=== PATIENT | female | born 1965 | race Caucasian/White ===

== ENCOUNTER 2016-02-27 20:41 | Emergency (ER) | payer OTHER ==
--- NOTE | 2016-02-27 21:02 | EDPRACDOC ---
- General Information Chief Complaint: Altered Mental Status Stated Complaint: DIABETIC Time Seen by Provider: 02/27/16 20:43 Home Medications: Home Medications Alprazolam [Xanax] 1 mg PO HS 05/22/12 Metformin HCl [Glucophage] 1,000 mg PO BID 05/22/12 Zolpidem Tartrate [Ambien] 10 mg PO HS 05/22/12 Cyclobenzaprine HCl [Flexeril] 10 mg PO TID PRN #15 tablet 04/07/15 Dapagliflozin Propanediol [Farxiga] 10 mg PO DAILY 04/07/15 Insulin Glargine,Hum.rec.anlog [Lantus] 16 unit SQ TID 06/20/15 Meloxicam 15 mg PO DAILY #15 tab 06/20/15 Oxycodone HCl [Oxycodone Immediate Release] 15 mg PO Q8H PRN 06/20/15 Unobtainable 0 mg PO .SEE COMMENTS 02/27/16 Allergies/Adverse Reactions: Allergies Allergy/AdvReac Type Severity Reaction Status Date / Time Sulfa (Sulfonamide Allergy Rash-Genera Verified 02/27/16 21:19 Antibiotics) lized - History of Present Illness Onset: UNKNOWN Exact Onset of Symptoms: Unknown HPI: EMS STATES SON CALLED 911 BECAUSE PT WAS LETHARGIC AND HAVING SLURRED SPEECH, PT STATES THAT HER BLOOD SUGAR HAS BEEN HIGH BECAUSE SHE CAN NOT AFFORD HER MEDS. NO N/V/D, PT STATES SHE HAS HAD "CHILLS". NO CP OR SOBR. Symptoms began: Suddenly Duration: Since Onset Symptoms Currently: Reports: Still Present, Unchanged Altered Quality: Reports: Decreased Alertness Altered Severity: Reports: Moderate Recent Symptoms of: Reports: Medications/drug use Relevant History: Reports: Diabetes Prehospital: Reports: Tours Hostess, IV Associated signs and symptoms: Reports: Slurred speech, Weakness. Denies: Chest pain, Headache, Seizure ED Past Medical History - History Reviewed Yes Nurses notes reviewed and agree except as marked - Patient Medical History Cardiac History: Reports: Hypertension, Hypercholesterolemia Psychological History: Denies: Depression Systemic History: Reports: Diabetes Surgical History: Reports: Hysterectomy, Hernia Surgery, Other (ORTHO) - Social Medical History Smoking Status: Heavy tobacco smoker (5 or more cigarettes/day or daily pipe/ cigar) ETOH: None Substance Abuse: None EDM Review of Systems - Review of Systems Constitutional: Chills, Weakness Eyes: negative: Blurred Vision, Double Vision Ears: negative: Drainage Throat: negative: Pain Nose: negative: Congestion, Discharge Respiratory: negative: Cough, Shortness of Breath, Wheezing Cardiovascular: negative: Chest Pain, Palpitations Gastrointestinal: negative: Diarrhea, Nausea, Pain, Vomiting Genitourinary: negative: Dysuria, Frequency Neurological: Speech Difficulty, Weakness. negative: Dizziness, Headache, Numbness Musculoskeletal: No Symptoms Reported Integumentary: No Symptoms Reported - Physical Exam Constitutional: Alert (Awake), No apparent distress (SPEECH SLURRED) Oriented to: Time, Person, Place Last recorded Vital Signs: Oxygen Pulse Oxygen Saturation O2 Device Oxygen Flow Rate Fraction of Inspired Oxygen ( FIO2) - HEENT Head: Normal ( normocephalic) Eye Exam: Normal (PERRL, EOMI, Sclera white) Oropharynx: Normal (Pharynx:Moist without exudate,Gums-no swelling) Tympanic Membrane: Normal ENT EAC: Normal TMJ: Normal Nose: No Symptoms Reported (septum midline) Neck: Normal (FROM, trachea at midline) - Respiratory/Cardiovascular Respiratory: Normal - CTA (BBS clear to auscultation without adventitious sounds ) Cardiovascular: Normal (RRR without murmur, gallop or rub) - GI Auscultation: Normal (NABS) Palpation: Fluid Wave Tenderness: Non tender Kwon's Sign: Negative - Musculoskeletal Back: Normal (Non-Tender) Extremities: Normal (Normal tone, Pulses 2+ No cyanosis or edema, FROM) - Integumentary Skin: Warm, Dry, Other (MULTIPLE ROUND SCABBED/EXCORIATED LESTIONS TO FACE AND NECK AND ARMS. SMALL ROUND EXCORIATED LESION MID BACK, PT COMPLAINS OF ITCHING HERE. NO ERYTHEMA, INDURATION OR FLUCTUANCE) Lymphatics: Normal (no adenopathy) - Neurologic Memory Impaired: Normal Motor Function: Normal (Normal tone, Pulses 2+ No cyanosis or edema, FROM) Cranial Nerve: Normal (CN II-X11 intact sensation, strength 5/5) Cerebellar: Normal Mood Description: Normal Perception: Normal - Differential Diagnosis Dehydration, DKA, Hypercalcemia, Hypernatremia, Hypoglycemia, Hyponatremia, CVA , Mass Lesion, ETOH intoxication, Medication toxicity, UTI - Re-evaluation Re-evaluation 1 Re-evaluation Time: 22:20 (MORE ALERT, STATES SHE TOOK XANAX 1 MG AND AN AMBIEN TONIGHT.) - Results 02/27/16 21:04 02/27/16 21:04 - EKG EKG #1 EKG Time: 21:15 -: Yes EKG interpreted by me Rate: bpm: 70 [place]: Normal Rhythm: NSR Block: None Hypertrophy: None ST: Normal Comparison: 01/02/16 (NO ACUTE PROCESS) - Diagnostic Imaging CXR Image interpreted by: Radiologist PORTABLE CHEST 1 VIEW COMPARISON: Chest radiograph performed 01/02/2016 FINDINGS: The lungs are well-aerated and clear. There is no evidence of focal opacification, pleural effusion or pneumothorax. The cardiomediastinal silhouette is within normal limits. No acute osseous abnormalities are seen. IMPRESSION: No acute cardiopulmonary process seen. CT HEAD Image interpreted by: Radiologist CT HEAD WITHOUT CONTRAST TECHNIQUE: Contiguous axial images were obtained from the base of the skull through the vertex without intravenous contrast. COMPARISON: 01/02/2016 and prior exams. FINDINGS: Minimal chronic small-vessel white matter ischemic changes again noted. No acute intracranial abnormalities are identified, including mass lesion or mass effect, hydrocephalus, extra-axial fluid collection, midline shift, hemorrhage, or acute infarction. The visualized bony calvarium is unremarkable. IMPRESSION: No evidence acute intracranial abnormality. - Additional Information Additional Information: OLD CHART REVIEWED, PT HAD SIMILAR EPISODE A FEW MONTHS AGO AFTER TAKING XANAX AND AMBIEN TOGETHER Decision Time to Discharge: 23:00 - Departure Disposition: Home Condition: Stable Final Diagnosis: IDDM, POOR CONTROL, Non compliance w medication regimen, Adverse drug reaction Instructions: Diabetes Mellitus Type 2 in Adults (ED) Education/Counseling Given To: Patient Education/Counseling Given Regarding: Diagnosis, Treatment, Prognosis, Follow Up Referrals: Michelle Hernandez MD [NonStaff] - One Week Additional Instructions: PLEASE TAKE ALL OF YOUR MEDICATIONS PRESCRIBED. YOU MAY PURCHASE METFORMIN AT [employer] FOR $4, RETURN TO THE ED FOR ANY WORSENING SYMPTOMS OR CONCERNS. PLEASE DO NOT TAKE XANAX AND AMBIEN AT THE SAME TIME.
[2016-02-27] MEDS ORDERED: NS 1,000 ML IV ONE (21:04)
[2016-02-27 21:12] VITALS: BP 103/57; BMI 32.9
[2016-02-27 21:13] LABS: AUTOMATED BASOPHIL 0.6 % (0-2); AUTOMATED EOSINOPHIL 1.5 % (0-5); AUTOMATED LYMPH 36.8 % (17-44); AUTOMATED MONOCYTE 5.7 % (3-10); AUTOMATED NEUTROPHIL 55.4 % (45-76)
[2016-02-27 21:23] LABS: BLOOD UREA NITROGEN 25 MG/DL (7-17); CALC CORRECTED 9.7 MG/DL (8.4-10.2); CALCIUM 9.3 MG/DL (8.4-10.2); CALCULATED OSMOLALITY 275 MOs/Kg (270-290); CHLORIDE 95 mEq/L (98-107); SODIUM LEVEL 130 mEq/L (137-146); TOTAL PROTEIN 6.4 G/DL (6.3-8.2)
[2016-02-27 21:24] LABS: ETOH-MGDL < 10 mg/dL
[2016-02-27 21:26] LABS: GLUCOSE 464 MG/DL (70-99); PARTIAL THROMB. TIME 21.6 SEC (22-35); PT-INR 1.1
[2016-02-27] MEDS ORDERED: REGULAR INSULIN 100 UNITS/ML - 3 ML VIAL IV ONE (21:30)
--- NOTE | 2016-02-27 21:36 | DIRPT ---
CLINICAL DATA: Acute onset of lethargy and slurred speech. Hyperglycemia and chills. Initial encounter. EXAM: PORTABLE CHEST 1 VIEW COMPARISON: Chest radiograph performed 01/02/2016 FINDINGS: The lungs are well-aerated and clear. There is no evidence of focal opacification, pleural effusion or pneumothorax. The cardiomediastinal silhouette is within normal limits. No acute osseous abnormalities are seen. IMPRESSION: No acute cardiopulmonary process seen. Electronically Signed By: Prabhu Gandara M.D. On: 02/27/2016 21:33
--- NOTE | 2016-02-27 21:49 | DIRPT ---
CLINICAL DATA: 50-year-old female with acute altered mental status and slurred speech. EXAM: CT HEAD WITHOUT CONTRAST TECHNIQUE: Contiguous axial images were obtained from the base of the skull through the vertex without intravenous contrast. COMPARISON: 01/02/2016 and prior exams. FINDINGS: Minimal chronic small-vessel white matter ischemic changes again noted. No acute intracranial abnormalities are identified, including mass lesion or mass effect, hydrocephalus, extra-axial fluid collection, midline shift, hemorrhage, or acute infarction. The visualized bony calvarium is unremarkable. IMPRESSION: No evidence acute intracranial abnormality. Electronically Signed By: Anthony Pan M.D. On: 02/27/2016 21:46
[2016-02-27 21:56] LABS: LEUKOCYTES/URINE NEG (NEGATIVE); NITRITE/URINE NEG (NEGATIVE); URINE OCCULT BLOOD NEG (NEG/TRACE)
[2016-02-27 22:02] LABS: ALL NEG? YES; MDMA* NEG (NEGATIVE); METHAMPHETAMINES NEG (NEGATIVE); OXYCODONE NEG (NEGATIVE)
[2016-02-27 22:04] LABS: WBC/URINE 0-2 (0-5)
[2016-02-27 22:06] LABS: RBC/URINE 0-2 (0-5)
[2016-02-27 23:53] VITALS: PULSE 75; TEMP 97.6
== END 2016-02-27 23:15 | disposition home or self-care (01) ==
LOC: ED 20:41
DX: E11.9 Type 2 diabetes mellitus without complications (principal); Z91.14 Patient's other noncompliance with medication regimen
CPT/HCPCS: 36415; 70450; 71010; 80053; 80307; 81001; 82140; 82962; 83690; 84484; 85025; 85610; 85730; 93005; 96374; 99284; J3490